=== PATIENT | female | born 1945 ===

== ENCOUNTER 2024-01-10 08:46 | Outpatient (CLI) | payer MEDICARE ==
--- NOTE | 2024-01-11 16:47 | Ultrasound Report ---
PROCEDURE: Pelvic w/Transvaginal INDICATIONS: PELVIC PAIN TECHNIQUE: Real-time scanning was performed of the pelvic organs, with image documentation. Additional endovagi nal scanning was necessary due to incomplete visualization of the adnexal and endometrial structures by transabdominal scanning. COMPARISON: None. FINDINGS: Uterus: Hysterectomy. Ovaries: Bilateral ovaries are not well seen. No sonographic evidence of an adnexal mass. Other: No pathologic free abdominal or pelvic fluid. IMPRESSION: Hysterectomy. Bilateral ovaries are not well seen. If clinical symptoms persist, consider cross-sectional imaging for further evaluation. Reviewed by: Madai Page MD on 01/11/2024 4:45 PM PDT Approved by: Madai Page MD on 01/11/2024 4:45 PM PDT Station ID: [id number]
--- NOTE | 2024-01-11 16:48 | Ultrasound Report ---
PROCEDURE: Abdomen Complete INDICATIONS: ABD PAIN TECHNIQUE: Real-time scanning was performed of the abdominal and retroperitoneal organs, with image documentatio n. COMPARISON: None. FINDINGS: Liver: Liver is normal in size and heterogeneous in echotexture. Main portal vein is patent with hep atopedal flow. Gallbladder: No gallstones, sludge, wall thickening or pericholecystic edema. Biliary ducts: Intrahepatic bile ducts are non-dilated. Extrahepatic bile duct caliber measures 4 m m. Normal is 6-7 mm or less in diameter, or 10 mm or less post-cholecystectomy. Pancreas: Visualized portions of the pancreas are sonographically normal. Spleen: Spleen is normal in size and homogeneous in echotexture. Kidneys: Kidneys are normal in size and echotexture. Right kidney measures 10.5 cm long; left kidne y measures 9.9 cm long. No hydronephrosis or nephrolithiasis. No solid masses. No complex renal cys tic lesions which require follow-up. Aorta: Visualized aorta is normal in caliber at less than 3 cm. Iliacs: Not well seen secondary to bowel gas. IVC: Intrahepatic inferior vena cava is patent. Miscellaneous: No free abdominal fluid. IMPRESSION: Evaluation is limited secondary to patient body habitus and bowel gas. 1.Liver parenchyma is heterogeneous which is nonspecific and may be seen in the setting of parenchyma l disease. Correlate with LFTs. 2.Normal gallbladder. No biliary ductal dilatation. If clinical symptoms persist, consider cross-sectional imaging for further evaluation. Reviewed by: Madai Page MD on 01/11/2024 4:47 PM PDT Approved by: Madai Page MD on 01/11/2024 4:47 PM PDT Station ID: [id number]
== END 2024-01-10 08:47 | disposition home or self-care (01) ==
LOC: DI 08:46
PROVIDERS: ATTEND Family Medicine
DX: R10.2 Pelvic and perineal pain (principal)

== ENCOUNTER 2024-02-19 12:25 | Outpatient (CLI) | payer MEDICARE ==
--- NOTE | 2024-02-19 15:04 | XRAY Report ---
PROCEDURE: Foot 3+V RT INDICATIONS: R FOOT OSTEOARTHRITIS TECHNIQUE: 3 views of the foot were acquired. COMPARISON: None. FINDINGS: Bones: No fractures or dislocations. Mild hallux causing angulation of the first MTP joint with med ial bunion formation.. Mild degenerative changes of the interphalangeal joints and first MTP joint. N o suspicious bony lesions. Soft tissues: No tibiotalar joint effusion. Achilles tendon appears normal. IMPRESSION: 1.No acute bony abnormality. 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 3.Mild hallux valgus angulation of the first MTP joint with medial bunion formation. Reviewed by: Matthew Ordonez MD on 02/19/2024 3:03 PM PDT Approved by: Matthew Ordonez MD on 02/19/2024 3:03 PM PDT Station ID: [id number]
== END 2024-02-19 12:26 | disposition home or self-care (01) ==
LOC: DI 12:25
PROVIDERS: ATTEND Physician Assistant
DX: M19.071 Primary osteoarthritis, right ankle and foot (principal); M20.11 Hallux valgus (acquired), right foot; M21.611 Bunion of right foot